=== PATIENT | female | born 1985 | race Caucasian/White ===

== ENCOUNTER 2016-03-23 10:37 | Emergency (ER) | payer OTHER ==
--- NOTE | 2016-03-23 13:04 | ED CLINICAL REPORT ---
Clinical Report - Physicians/Mid Levels [facility] [address] [place] [address] 03/23/2016 10:38 Patient: HORACE SMITH Time Seen: 12:52; initial patient contact. Arrived- By private vehicle. Historian- patient. HISTORY OF PRESENT ILLNESS Chief Complaint: COUGH, FEVER and CHILLS. This started 3 weeks; tested positive for influenza A 3 weeks ago, has progressively gotten worse, thinks she has pneumonia. also has a history of asthma, using her inhalers daily and not improving. and is still present and worsening. The illness is described as moderate. The patient has had sputum production, a cough, chest discomfort, difficulty breathing and hoarseness. She has had nasal congestion, sinus pressure, sinus drainage, fever and chills. She has had muscle aches and a nasal discharge. No chest pain, sore throat or ear pain. Similar symptoms previously: Twice. Recent medical care: The patient was seen recently at another facility in a clinic. REVIEW OF SYSTEMS The patient has had a headache. No eye discomfort, nausea, vomiting, diarrhea or abdominal pain. All systems otherwise negative, except as recorded above. PAST HISTORY See nurses notes. Problems: Sick Contact. Asthma. Dental Caries. Additional Surgeries: no known surgeries. Medications: Albuterol Sulfate Inhalation. Allergies: None. FAMILY HISTORY Negative. ADDITIONAL NOTES The nursing notes have been reviewed with agreement regarding the chief complaint, HPI, ROS, PMH and patient medications and allergies. PHYSICAL EXAM Vital Signs: 03/23/2016 12:47 BP: 117/76. HR: 72. RR: 18. O2 saturation: 98%. 03/23/2016 10:59 BP: 132/90. HR: 72. RR: 20. O2 saturation: 98%. Temp: 98.2 F. Have been reviewed. Appearance: Alert. No acute distress. Eyes: Pupils equal, round and reactive to light. Eyes normal inspection. ENT: Ears normal. Nose normal. Pharynx normal. Uvula midline. Neck: Normal inspection. Neck supple. CVS: Normal heart rate and rhythm. Heart sounds normal. Pulses normal. Respiratory: No respiratory distress. Mild bilateral rhonchi present posteriorly and in the bases; rhonchi present in the left mid-lung posteriorly. Abdomen: Soft and nontender. PROGRESS AND PROCEDURES Course of Care: Patient is stable. CLINICAL IMPRESSION Bacterial pneumonia. Atypical presentation with a delayed diagnosis. INSTRUCTIONS No strenuous activity for two days as needed and until better. Do not work tomorrow until better. Drink plenty of fluids. Do not smoke. Warnings: GENERAL WARNINGS: Return or contact your physician immediately if your condition worsens or changes unexpectedly, if not improving as expected, or if other problems arise. Your Current Medications: CONTINUE TAKING THE FOLLOWING MEDICATIONS: Albuterol Sulfate Inhalation. Prescription Medications: Zithromax Z-Leon: Take according to package instructions 2 orally today, followed by 1 orally every day for the next 4 days. Total course 5 days. No refills. Substitution is permissible. Pulmicort Flexhaler 180 mcg: inhale 1 puff (rinse mouth after inhalation) every 12 hours for 3 weeks until symptoms improve. Dispense one (1) unit. One refill. Substitution is permissible. Follow-up: Follow up with your doctor Thursday if not well. Call for an appointment. Understanding of the discharge instructions verbalized by parent. (Electronically signed by Claudia Sheldon PA-C 03/23/2016 23:37)
--- NOTE | 2016-03-23 13:04 | ED NURSING NOTES ---
Clinical Report - Nurses [facility] [address] [place] [address] 03/23/2016 10:38 Patient: HORACE SMITH TRIAGE Triage time 11:00 Mar 23 2016. Acuity: LEVEL 4. Chief Complaint: COUGH, RUNNY NOSE and SORE THROAT. ESCOBAR COMA SCORE: Escobar Coma Scale: 15- eyes open spontaneously (4); best verbal response- oriented x 4 (5); best motor response- obeys commands (6). --11:04 Gerardo Mathews R.N. 10:59 03/23/16. BP: 132/90. HR: 72. RR: 20. O2 saturation: 98%. Temp: 98.2 F. Pain level now 0/10. --11:04 Gerardo Mathews R.N. Weight: 85.7 kg stated. Height/Length: 65 inches Per Patient. BMI: 31.5. --11:03 Gerardo Mathews R.N. Medications Albuterol Sulfate Inhalation. --11:02 Gerardo Mathews R.N. Allergies None. --11:02 Gerardo Mathews R.N. History Arrived by private vehicle. Historian: patient. Accompanied by family. ( Patient had influenza A 03/04/16 and pt took tamiflu felt better but has had this cold and it's not going away with congestion and wheezing.). She has had a yellow nasal discharge, mild chest congestion and mild difficulty breathing. No chills, headache, photophobia or sinus pain. She has not had fatigue. Denies muscle aches. Treatment MANAGER AEROSPACE: (inhaler). PAST MEDICAL HX: The patient has had contact with a sick friend. No history of diabetes mellitus, hypertension, heart disease or lung disease. No recent travel. ( Friend has bronchitis). SOCIAL HX: Current every day light tobacco smoker (cigarette)- less than 1/2 a pack per day. Occasional alcohol use; consumes two glasses of wine. No drug use. SELF HARM ASSESSMENT: A self harm assessment was performed. The patient answered "no" to the question "Have you recently felt down, depressed, or hopeless?" and "Do you have thoughts of harming or killing yourself?". FALL RISK ASSESSMENT: Fall risk assessment completed. No fall risk identified. NUTRITIONAL RISK ASSESSMENT: The nutritional risk assessment revealed no deficiencies. FUNCTIONAL ASSESSMENT: Functional assessment: no impairments noted. LEARNING NEEDS ASSESSMENT: The learning needs assessment revealed no barriers. ABUSE ASSESSMENT: Abuse assessment: (yes) The patient was asked "Do you feel safe in your home?". SKIN INTEGRITY ASSESSMENT: Skin integrity risk assessment completed. No skin integrity risk identified. --11:04 Gerardo Mathews R.N. PROBLEMS: Asthma. Dental Caries. --11:02 Gerardo Mathews R.N. ADDITIONAL SURGERIES: no known surgeries. Interventions ID band on patient. --11:04 Gerardo Mathews R.N. PHYSICAL ASSESSMENT Ambulatory to room. GENERAL / NEURO / PSYCH: Alert. Appears in no acute distress. HEENT: Runny nose- thin discharge. Hoarse voice. Mucous membranes are pink. RESPIRATORY: Respirations not labored. The patient can speak in full sentences. Cough productive of yellow sputum. CVS: Normal sinus rhythm noted. Capillary refill less than 2 seconds. SKIN: Skin is warm and dry. Normal skin turgor. --11:05 Gerardo Mathews R.N. NURSING PROGRESS NOTES The initial plan of care for this patient includes an assessment with efforts to address impairment of the respiratory system. Pulse oximeter and NIBP monitor placed on patient. Patient gowned. Head of bed elevated (45). Reassurance given. Call light placed in reach. Side rails up x 1. --11:06 Gerardo Mathews R.N. 12:47 03/23/16. BP: 117/76. HR: 72. RR: 18. O2 saturation: 98%. --12:48 Gerardo Mathews R.N. DISPOSITION / DISCHARGE Departure time: 13:13 Mar 23 2016. Condition at departure: improved. No learning barriers present. Discharge instructions provided and reviewed with the patient. Reviewed warnings. Reviewed medication(s). Treatments reviewed. Reviewed referrals. Patient verbalized understanding. Written instructions provided in Belarusian. The patient was discharged home and accompanied by spouse. She left the Emergency Department ambulatory and via private vehicle. Spouse driving. --13:13 Gerardo Mathews R.N. 12:47 03/23/16. BP: 117/76. HR: 72. RR: 18. O2 saturation: 98%. --13:13 Gerardo Mathews R.N. 13:13 03/23/16. Temp: 98.4 F. Pain level now 04/25. --13:13 Gerardo Mathews R.N. Locked/Released at 03/23/2016 19:26 by Gerardo Mathews R.N.
--- NOTE | 2016-03-23 13:04 | ED NURSING NOTES ---
Clinical Report - Nurses [facility] [address] [place] [address] 03/23/2016 10:38 Patient: HORACE SMITH TRIAGE Triage time 11:00 Mar 23 2016. Acuity: LEVEL 4. Chief Complaint: COUGH, RUNNY NOSE and SORE THROAT. ESCOBAR COMA SCORE: Escobar Coma Scale: 15- eyes open spontaneously (4); best verbal response- oriented x 4 (5); best motor response- obeys commands (6). --11:04 Gerardo Mathews R.N. 10:59 03/23/16. BP: 132/90. HR: 72. RR: 20. O2 saturation: 98%. Temp: 98.2 F. Pain level now 0/10. --11:04 Gerardo Mathews R.N. Weight: 85.7 kg stated. Height/Length: 65 inches Per Patient. BMI: 31.5. --11:03 Gerardo Mathews R.N. Medications Albuterol Sulfate Inhalation. --11:02 Gerardo Mathews R.N. Allergies None. --11:02 Gerardo Mathews R.N. History Arrived by private vehicle. Historian: patient. Accompanied by family. ( Patient had influenza A 03/04/16 and pt took tamiflu felt better but has had this cold and it's not going away with congestion and wheezing.). She has had a yellow nasal discharge, mild chest congestion and mild difficulty breathing. No chills, headache, photophobia or sinus pain. She has not had fatigue. Denies muscle aches. 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 PAST MEDICAL HX: The patient has had contact with a sick friend. No history of diabetes mellitus, hypertension, heart disease or lung disease. No recent travel. ( Friend has bronchitis). SOCIAL HX: Current every day light tobacco smoker (cigarette)- less than 1/2 a pack per day. Occasional alcohol use; consumes two glasses of wine. No drug use. SELF HARM ASSESSMENT: A self harm assessment was performed. The patient answered "no" to the question "Have you recently felt down, depressed, or hopeless?" and "Do you have thoughts of harming or killing yourself?". FALL RISK ASSESSMENT: Fall risk assessment completed. No fall risk identified. NUTRITIONAL RISK ASSESSMENT: The nutritional risk assessment revealed no deficiencies. FUNCTIONAL ASSESSMENT: Functional assessment: no impairments noted. LEARNING NEEDS ASSESSMENT: The learning needs assessment revealed no barriers. ABUSE ASSESSMENT: Abuse assessment: (yes) The patient was asked "Do you feel safe in your home?". SKIN INTEGRITY ASSESSMENT: Skin integrity risk assessment completed. No skin integrity risk identified. --11:04 Gerardo Mathews R.N. PROBLEMS: Asthma. Dental Caries. --11:02 Gerardo Mathews R.N. ADDITIONAL SURGERIES: no known surgeries. Interventions ID band on patient. --11:04 Gerardo Mathews R.N. PHYSICAL ASSESSMENT Ambulatory to room. GENERAL / NEURO / PSYCH: Alert. Appears in no acute distress. HEENT: Runny nose- thin discharge. Hoarse voice. Mucous membranes are pink. RESPIRATORY: Respirations not labored. The patient can speak in full sentences. Cough productive of yellow sputum. CVS: Normal sinus rhythm noted. Capillary refill less than 2 seconds. SKIN: Skin is warm and dry. Normal skin turgor. --11:05 Gerardo Mathews R.N. NURSING PROGRESS NOTES The initial plan of care for this patient includes an assessment with efforts to address impairment of the respiratory system. Pulse oximeter and NIBP monitor placed on patient. Patient gowned. Head of bed elevated (45). Reassurance given. Call light placed in reach. Side rails up x 1. --11:06 Gerardo aMthews R.N. 12:47 03/23/16. BP: 117/76. HR: 72. RR: 18. O2 saturation: 98%. --12:48 Gerardo Mathews R.N. DISPOSITION / DISCHARGE Departure time: 13:13 Mar 23 2016. Condition at departure: improved. No learning barriers present. Discharge instructions provided and reviewed with the patient. Reviewed warnings. Reviewed medication(s). Treatments reviewed. Reviewed referrals. Patient verbalized understanding. Written instructions provided in Uzbek. The patient was discharged home and accompanied by spouse. She left the Emergency Department ambulatory and via private vehicle. Spouse driving. --13:13 Gerardo Mathews R.N. 12:47 03/23/16. BP: 117/76. HR: 72. RR: 18. O2 saturation: 98%. --13:13 Gerardo Mathews R.N. 13:13 03/23/16. Temp: 98.4 F. Pain level now 04/25. --13:13 Gerardo Mathews R.N. Locked/Released at 03/23/2016 19:26 by Gerardo Mathews R.N.
--- NOTE | 2016-03-23 23:37 | ED MAR SUMMARY ---
..... Medication Administration Record [facility] [address] [place], [place] [id number] Patient: HORACE SMITH Angel Visit ID: [id number] 30y, F Weight: 85.7 kg Height/Length: 65 in BMI: 31.5 ALLERGIES: None
--- NOTE | 2016-03-23 23:37 | ED MED RECONCILIATION SUMMARY ---
Patient: HORACE SMITH Medication Reconciliation Report [facility] VisitID: [id number] [address] [place] [address] 30y, F Registration Date/Time: 03/23/2016 Weight: 85.7 kg Height/Length: 65 in. BMI: 31.5 ALLERGIES: None The patient's Home Medications are listed below: CONTINUE TAKING THE FOLLOWING MEDICATIONS: Albuterol Sulfate Inhalation The source(s) of the original Home Medication information: Not obtained. The following Medications were given to the patient in the Emergency Department: None. The following Medications were prescribed to the patient: Zithromax Z-Leon: Take according to package instructions 2 orally today, followed by 1 orally every day for the next 4 days. Total course 5 days. No refills. Substitution is permissible. -- Claudia Sheldon PA-C Pulmicort Flexhaler 180 mcg: inhale 1 puff (rinse mouth after inhalation) every 12 hours for 3 weeks until symptoms improve. Dispense one (1) unit. One refill. Substitution is permissible. -- Claudia Sheldon PA-C
--- NOTE | 2016-03-23 23:37 | ED MAR SUMMARY ---
..... Medication Administration Record [facility] [address], [place] [id number] Patient: HORACE SMITH Angel Visit ID: [id number] 30y, F Weight: 85.7 kg Height/Length: 65 in BMI: 31.5 ALLERGIES: None
--- NOTE | 2016-03-23 23:37 | ED DISCHARGE INSTRUCTIONS ---
Patient: HORACE SMITH General Instructions [facility] VisitID: [id number] [place] [address] 30y, F Registration Date/Time: 03/23/2016 Bacterial pneumonia. Atypical presentation with a delayed diagnosis. INSTRUCTIONS No strenuous activity for two days as needed and until better. Do not work tomorrow until better. Drink plenty of fluids. Do not smoke. Warnings: GENERAL WARNINGS: Return or contact your physician immediately if your condition worsens or changes unexpectedly, if not improving as expected, or if other problems arise. Your Current Medications: CONTINUE TAKING THE FOLLOWING MEDICATIONS: Albuterol Sulfate Inhalation. Prescription Medications: Zithromax Z-Leon: Take according to package instructions 2 orally today, followed by 1 orally every day for the next 4 days. Total course 5 days. No refills. Substitution is permissible. Pulmicort Flexhaler 180 mcg: inhale 1 puff (rinse mouth after inhalation) every 12 hours for 3 weeks until symptoms improve. Dispense one (1) unit. One refill. Substitution is permissible. Follow-up: Follow up with your doctor Thursday if not well. Call for an appointment. Understanding of the discharge instructions verbalized by parent. ADDITIONAL INFORMATION Pneumonia (Adult) Pneumonia is an infection deep within the lung, in the small air sacs (alveoli). It may be due to a virus or bacteria and is usually treated with an antibiotic. Severe cases require treatment in the hospital. Milder cases can be treated at home. Symptoms usually start to improve during the first2 days of treatment. Home Care: Rest at home for the first 23 days or until you feel stronger. When resuming activity, dont let yourself become overly tired. Avoid exposure to cigarette smoke (yours or others). You may use acetaminophen (Tylenol) or ibuprofen (Motrin, Advil) to control fever or pain, unless another medicine was prescribed. [NOTE: If you have chronic liver or kidney disease or ever had a stomach ulcer or GI bleeding, talk with your doctor before using these medicines.] (Aspirin should never be used in anyone under 18 years of age who is ill with a fever. It may cause severe liver damage.) Your appetite may be poor so a light diet is fine. Keep well hydrated by drinking 68 glasses of fluids per day (water, sport drinks such as Gatorade, sodas without caffeine, juices, tea, soup, etc.). This will help loosen secretions in the lung, making it easier for you to cough up the phlegm (sputum). If you also have heart or kidney disease, check with your doctor before you drink extra amounts of fluids. Finish all antibiotic medicine prescribed, even if you are feeling better after a few days. Follow Up with your doctor in the next 23 days (or as advised) to be sure you are responding properly to the medicine. [NOTE: If you are age 65 or older, or if you have chronic lung disease (asthma, emphysema or COPD), we recommendthe pneumococcal vaccination and a yearlyinfluenzavaccination(flu-shot) every . Ask your doctor about this.] Get Prompt Medical Attention if any of the following occur: Not getting better within the first 48 hours of treatment Increasing shortness of breath or rapid breathing (over 25 breaths/minute) Coughing up blood or increasing chest pain with breathing Fever of 100.4F (38C) oral or higher, not better with fever medication Increasing weakness, dizziness or fainting Increasing thirst or dry mouth Sinus pain, headache or a stiff neck Chest pain not caused by coughing Azithromycin Oral tablet What is this medicine? AZITHROMYCIN (az ith colin MYE sin) is a macrolide antibiotic. It is used to treat or prevent certain kinds of bacterial infections. It will not work for colds, flu, or other viral infections. How should I use this medicine? Take this medicine by mouth with a full glass of water. Follow the directions on the prescription label. The tablets can be taken with food or on an empty stomach. If the medicine upsets your stomach, take it with food. Take your medicine at regular intervals. Do not take your medicine more often than directed. Take all of your medicine as directed even if you think your are better. Do not skip doses or stop your medicine early. Talk to your smoking pipe mounter regarding the use of this medicine in children. Special care may be needed. What side effects may I notice from receiving this medicine? Side effects that you should report to your doctor or health critical care registered nurse as soon as possible: allergic reactions like skin rash, itching or hives, swelling of the face, lips, or tongue confusion, nightmares or hallucinations dark urine difficulty breathing hearing loss irregular heartbeat or chest pain pain or difficulty passing urine redness, blistering, peeling or loosening of the skin, including inside the mouth white patches or sores in the mouth yellowing of the eyes or skin Side effects that usually do not require medical attention (report to your doctor or health critical care registered nurse if they continue or are bothersome): diarrhea dizziness, drowsiness headache stomach upset or vomiting tooth discoloration vaginal irritation What may interact with this medicine? Do not take this medicine with any of the following medications: lincomycin This medicine may also interact with the following medications: amiodarone antacids cyclosporine digoxin magnesium nelfinavir phenytoin warfarin What if I miss a dose? If you miss a dose, take it as soon as you can. If it is almost time for your next dose, take only that dose. Do not take double or extra doses. Where should I keep my medicine? Keep out of the reach of children. Store at room temperature between 15 and 30 degrees C (59 and 86 degrees F). Throw away any unused medicine after the expiration date. What should I tell my health care provider before I take this medicine? They need to know if you have any of these conditions: kidney disease liver disease irregular heartbeat or heart disease an unusual or allergic reaction to azithromycin, erythromycin, other macrolide antibiotics, foods, dyes, or preservatives or trying to get breast-feeding What should I watch for while using this medicine? Tell your doctor or health critical care registered nurse if your symptoms do not improve. Do not treat diarrhea with over the counter products. Contact your doctor if you have diarrhea that lasts more than 2 days or if it is severe and watery. This medicine can make you more sensitive to the sun. Keep out of the sun. If you cannot avoid being in the sun, wear protective clothing and use sunscreen. Do not use sun lamps or tanning beds/booths. You have been given the following additional information: Pneumonia (Adult) Azithromycin Oral tablet No strenuous activity for two days as needed and until better. Do not work tomorrow until better. (Electronically signed by Claudia Sheldon PA-C 03/23/2016 23:37)
--- NOTE | 2016-03-23 23:37 | ED MED RECONCILIATION SUMMARY ---
Patient: HORACE SMITH Medication Reconciliation Report [facility] VisitID: [id number] [address] [place] [address] 30y, F Registration Date/Time: 03/23/2016 Weight: 85.7 kg Height/Length: 65 in. BMI: 31.5 ALLERGIES: None The patient's Home Medications are listed below: CONTINUE TAKING THE FOLLOWING MEDICATIONS: Albuterol Sulfate Inhalation The source(s) of the original Home Medication information: Not obtained. The following Medications were given to the patient in the Emergency Department: None. The following Medications were prescribed to the patient: Zithromax Z-Leon: Take according to package instructions 2 orally today, followed by 1 orally every day for the next 4 days. Total course 5 days. No refills. Substitution is permissible. -- Claudia Sheldon PA-C Pulmicort Flexhaler 180 mcg: inhale 1 puff (rinse mouth after inhalation) every 12 hours for 3 weeks until symptoms improve. Dispense one (1) unit. One refill. Substitution is permissible. -- Claudia Sheldon PA-C
== END 2016-03-23 13:15 | disposition home or self-care (01) ==
LOC: ED SRH 10:37
DX: J15.9 Unspecified bacterial pneumonia (principal); J45.909 Unspecified asthma, uncomplicated; Z79.52 Long term (current) use of systemic steroids; F17.210 Nicotine dependence, cigarettes, uncomplicated